=== PATIENT | male | born 1945 | race Caucasian/White ===

== ENCOUNTER 2021-10-20 00:39 | Emergency (ER) | payer MEDICARE, OTHER ==
[2021-10-20 00:55] VITALS: BP 116/76
[2021-10-20 01:00] VITALS: BP 106/70
[2021-10-20] MEDS ORDERED: NORVASC2.5 M1 PO (01:03)
[2021-10-20] MEDS ORDERED: SOTALOL HCL80 MG PO (01:04)
[2021-10-20 01:15] VITALS: BP 110/68
[2021-10-20 01:23] LABS: HEMATOCRIT 30.7 % (39.0-50.0); MEAN CELL VOLUME 82.1 fL CALC (80.0-100.0); MEAN CORPUSCULAR HGB 26.7 pG CALC (26.0-32.0); MEAN CORPUSCULAR HGB CONC 32.6 g/dL CAL (32.0-36.0); NEUT# 9.94 thou/uL (1.82-7.42); RED BLOOD COUNT 3.74 mill/uL (4.70-6.10); RED CELL DISTRI WIDTH 13.2 % (11.5-15.5)
[2021-10-20 01:50] LABS: ALBUMIN 3.1 g/dL (3.2-5.0); ALKALINE PHOSPHATASE 77 u/l (38-126); ANION GAP 12 (6-22 (CALC)); BILIRUBIN, TOTAL 1.2 mg/dL (0.0-1.4); BUN 11 mg/dL (8-23); BUN/CREATININE RATIO 19 (12-20 (CALC)); CARBON DIOXIDE 25 mmol/l (22-30); CHLORIDE 95 mmol/l (95-108); CPK 71 u/l (52-200); CREATININE 0.6 mg/dL (0.7-1.3); GFR FOR AFR.AMER. > 60 ML/MIN (>=60 (CALC)); GFR OTHER RACES > 60 ML/MIN (>=60 (CALC)); POTASSIUM 4.3 mmol/l (3.5-5.1); SGOT/AST 30 u/l (19-48); SODIUM 127 mmol/l (137-146); TOTAL PROTEIN 6.7 g/dL (6.3-8.2)
[2021-10-20 01:59] LABS: MYOGLOBIN 69 ng/mL (0 - 121)
[2021-10-20 04:11] LABS: URINE BILIRUBIN - DIPSTICK NEGATIVE (NEGATIVE); URINE BLOOD DIPSTICK NEGATIVE (NEGATIVE); URINE COLOR YELLOW; URINE GLUCOSE - DIPSTICK NEGATIVE (NEGATIVE); URINE KETONE TRACE mg/dL (NEGATIVE); URINE LEUK ESTERASE NEGATIVE (NEGATIVE); URINE PH 5.5 (4.5-8.0); URINE PROTEIN - DIPSTICK NEGATIVE (NEG-TRACE); URINE SPECIFIC GRAVITY 1.025; URINE UROBILINOGEN - DIPSTICK 0.2 E.U./dL (0.2)
[2021-10-20 04:13] LABS: URINE NITRITE - DIPSTICK NEGATIVE (Negative)
[2021-10-20 04:46] VITALS: BP 101/66
[2021-10-20 05:00] VITALS: BP 90/61
[2021-10-20 05:15] VITALS: BP 95/63
== END 2021-10-20 05:25 | disposition home or self-care (01) ==
LOC: ED 00:39
PROVIDERS: Family Medicine
DX: R50.9 Fever, unspecified (principal); E87.1 Hypo-osmolality and hyponatremia; D69.6 Thrombocytopenia, unspecified

== ENCOUNTER 2021-12-30 18:17 | Emergency (ER) | payer MEDICARE, OTHER ==
[~2021-12-30] VITALS: Ht 177.8 cm; Wt 68.2 kg
[~2021-12-30 18:17] MED LIST: COQ10; CUMIN; IS-ZC 50 50 MG1 TAB; MAGNESIUM; NORVASC2.5 M1 PO; POTASSIUM; SOTALOL HCL80 MG PO; VITAMI PO; VITAMIN D PO; [UNRECOGNIZED DRUG - OTHER]; [UNRECOGNIZED DRUG - OTHER]
[2021-12-30 19:11] LABS: HEMATOCRIT 31.6 % (39.0-50.0); HEMOGLOBIN 9.7 g/dl (14.0-18.0); IMMATURE GRANULOCYTES 5.1 % (0.0-5.0); MEAN CELL VOLUME 77.8 fL CALC (80.0-100.0); MEAN CORPUSCULAR HGB 23.9 pG CALC (26.0-32.0); MEAN CORPUSCULAR HGB CONC 30.7 g/dL CAL (32.0-36.0); NEUT# 11.11 thou/uL (1.82-7.42); RED BLOOD COUNT 4.06 mill/uL (4.70-6.10); RED CELL DISTRI WIDTH 20.4 % (11.5-15.5)
[2021-12-30 19:20] LABS: ALBUMIN 3.3 g/dL (3.2-5.0); ALKALINE PHOSPHATASE 79 u/l (38-126); BUN 19 mg/dL (8-23); BUN/CREATININE RATIO 27 (12-20 (CALC)); CARBON DIOXIDE 26 mmol/l (22-30); CHLORIDE 92 mmol/l (95-108); CREATININE 0.7 mg/dL (0.7-1.3); GFR FOR AFR.AMER. > 60 ML/MIN (>=60 (CALC)); GFR OTHER RACES > 60 ML/MIN (>=60 (CALC)); POTASSIUM 3.7 mmol/l (3.5-5.1); SGOT/AST 32 u/l (19-48); TOTAL PROTEIN 6.8 g/dL (6.3-8.2)
[2021-12-30 19:22] LABS: ANION GAP 10 (6-22 (CALC)); BILIRUBIN, TOTAL 1.2 mg/dL (0.0-1.4); SODIUM 124 mmol/l (137-146)
[2021-12-30 19:45] VITALS: BP 116/74
[2021-12-30 20:00] VITALS: BP 117/73
[2021-12-30 20:15] VITALS: BP 114/71
[2021-12-30 20:16] LABS: URINE BILIRUBIN - DIPSTICK NEGATIVE (NEGATIVE); URINE BLOOD DIPSTICK NEGATIVE (NEGATIVE); URINE COLOR YELLOW; URINE GLUCOSE - DIPSTICK NEGATIVE (NEGATIVE); URINE KETONE TRACE mg/dL (NEGATIVE); URINE LEUK ESTERASE NEGATIVE (NEGATIVE); URINE PH 5.5 (4.5-8.0); URINE PROTEIN - DIPSTICK TRACE mg/dL (NEG-TRACE); URINE SPECIFIC GRAVITY >=1.030; URINE UROBILINOGEN - DIPSTICK 0.2 E.U./dL (0.2)
[2021-12-30 20:17] LABS: URINE NITRITE - DIPSTICK NEGATIVE (Negative)
[2021-12-30 20:30] VITALS: BP 112/69
[2021-12-30] MEDS ORDERED: SOD CHLORIDE1 G2 OD (20:30)
[2021-12-30 20:36] VITALS: BP 112/69
== END 2021-12-30 20:49 | disposition home or self-care (01) ==
LOC: ED 18:17
PROVIDERS: Family Medicine
DX: U07.1 COVID-19 (principal); R50.9 Fever, unspecified; R05.9 Cough, unspecified; R34 Anuria and oliguria; E87.1 Hypo-osmolality and hyponatremia; D69.6 Thrombocytopenia, unspecified

== ENCOUNTER 2022-02-05 07:14 | Day surgery (SDC) | payer MEDICARE, OTHER ==
[~2022-02-05] VITALS: Ht 177.8 cm; Wt 63.5 kg
[~2022-02-05 07:14] MED LIST changes: +NAC500 MG PO; +SOD CHLORIDE1 G2 OD
[2022-02-05 10:34] VITALS: BP 121/81
== END 2022-02-05 10:15 | disposition home or self-care (01) ==
LOC: ENDO 07:14
PROVIDERS: ATTEND Surgery
PROC: 0DJD8ZZ Inspection of Lower Intestinal Tract, Via Natural or Artificial Opening Endoscopic (ICD-10-PCS; principal; 2022-02-05)
PROC: 0DB78ZX Excision of Stomach, Pylorus, Via Natural or Artificial Opening Endoscopic, Diagnostic (ICD-10-PCS; 2022-02-05)
DX: D64.9 Anemia, unspecified (principal); K29.70 Gastritis, unspecified, without bleeding; K64.8 Other hemorrhoids; D69.6 Thrombocytopenia, unspecified; I10 Essential (primary) hypertension; Z86.010 Personal history of colon polyps; Z87.19 Personal history of other diseases of the digestive system

== ENCOUNTER 2023-10-30 14:10 | Emergency (ER) | payer MEDICARE, OTHER ==
[~2023-10-30] VITALS: Ht 177.8 cm; Wt 66.7 kg
[2023-10-30 14:24] VITALS: BP 128/80
[2023-10-30 14:31] VITALS: BP 125/80
[2023-10-30 14:45] VITALS: BP 127/81
[2023-10-30 14:48] VITALS: BP 127/81
== END 2023-10-30 14:51 | disposition home or self-care (01) ==
LOC: ED 14:10
DX: L76.22 Postprocedural hemorrhage of skin and subcutaneous tissue following other procedure (principal); D69.6 Thrombocytopenia, unspecified; Y83.8 Other surgical procedures as the cause of abnormal reaction of the patient, or of later complication, without mention of misadventure at the time of the procedure

== ENCOUNTER 2023-10-30 22:46 | Emergency (ER) | payer MEDICARE, OTHER ==
[~2023-10-30] VITALS: Ht 175.3 cm; Wt 66.0 kg
[2023-10-30 23:22] VITALS: BP 133/81
== END 2023-10-30 23:22 | disposition home or self-care (01) ==
LOC: ED 22:46
DX: L76.22 Postprocedural hemorrhage of skin and subcutaneous tissue following other procedure (principal); D69.6 Thrombocytopenia, unspecified; Y83.8 Other surgical procedures as the cause of abnormal reaction of the patient, or of later complication, without mention of misadventure at the time of the procedure; Z91.199 Patient's noncompliance with other medical treatment and regimen due to unspecified reason

== ENCOUNTER 2023-10-31 03:45 | Emergency (ER) | payer MEDICARE, OTHER ==
[~2023-10-31] VITALS: Ht 177.8 cm; Wt 66.0 kg
[2023-10-31 03:56] VITALS: BP 156/97
[2023-10-31 04:00] VITALS: BP 139/97
[2023-10-31 04:30] VITALS: BP 135/84
[2023-10-31 05:40] LABS: BASO% 0.2 % (0-3); EOS% 3.2 % (0-8); IMMATURE GRANULOCYTES 0.4 % (0.0-5.0); LYMPH% 8.5 % (15-41); MEAN CORPUSCULAR HGB 27.9 pG CALC (26.0-32.0); MONO% 5.2 % (2-13); NEUT# 8.59 thou/uL (1.82-7.42); NEUT% 82.5 % (42-76); RED BLOOD COUNT 4.44 mill/uL (4.70-6.10); RED CELL DISTRI WIDTH 14.4 % (11.5-15.5)
[2023-10-31 05:42] LABS: HEMATOCRIT 38.7 % (39.0-50.0); HEMOGLOBIN 12.4 g/dl (14.0-18.0); MEAN CELL VOLUME 87.2 fL CALC (80.0-100.0)
[2023-10-31 05:53] LABS: ACT PARTIAL THROMBO TIME 26.5 SECONDS (20.0-32.5); INTERNATIONAL NORMALIZED RATIO 1.1 RATIO (0.7-1.3)
[2023-10-31 05:57] LABS: PROTHROMBIN TIME 10.8 SECONDS (9.0-12.5)
[2023-10-31 06:22] VITALS: BP 135/84
== END 2023-10-31 06:22 | disposition home or self-care (01) ==
LOC: ED 03:45
PROVIDERS: Family Medicine
DX: L76.22 Postprocedural hemorrhage of skin and subcutaneous tissue following other procedure (principal); Y83.8 Other surgical procedures as the cause of abnormal reaction of the patient, or of later complication, without mention of misadventure at the time of the procedure

== ENCOUNTER 2024-02-08 22:35 | Emergency (ER) | payer MEDICARE, OTHER ==
[~2024-02-08] VITALS: Ht 177.8 cm; Wt 70.0 kg
[2024-02-08 22:46] VITALS: BP 113/76
[2024-02-08] MEDS ORDERED: ASPIRIN 81 MG/TAB PO ONE (22:55)
[2024-02-08] MEDS ORDERED: ZOLOFT25 MG PO (23:00)
[2024-02-08 23:01] VITALS: BP 111/69
[2024-02-08 23:08] LABS: BASO% 0.3 % (0-3); EOS% 2.2 % (0-8); HEMATOCRIT 37.5 % (39.0-50.0); HEMOGLOBIN 11.4 g/dl (14.0-18.0); IMMATURE GRANULOCYTES 0.5 % (0.0-5.0); LYMPH% 11.2 % (15-41); MEAN CELL VOLUME 84.5 fL CALC (80.0-100.0); MEAN CORPUSCULAR HGB 25.7 pG CALC (26.0-32.0); MEAN CORPUSCULAR HGB CONC 30.4 g/dL CAL (32.0-36.0); MONO% 8.9 % (2-13); NEUT# 5.91 thou/uL (1.82-7.42); NEUT% 76.9 % (42-76); RED BLOOD COUNT 4.44 mill/uL (4.70-6.10); RED CELL DISTRI WIDTH 14.3 % (11.5-15.5)
[2024-02-08 23:17] LABS: ALBUMIN 3.8 g/dL (3.2-5.0); ALKALINE PHOSPHATASE 59 u/l (38-126); BILIRUBIN, TOTAL 0.8 mg/dL (0.2-1.3); BUN 18 mg/dL (8-23); BUN/CREATININE RATIO 20 (12-20 (CALC)); CARBON DIOXIDE 24 mmol/l (22-30); CHLORIDE 103 mmol/l (95-108); CPK 123 u/l (55-170); CREATININE 0.9 mg/dL (0.7-1.3); ESTIMATED GFR 87 ML/MIN (>=90 (CALC)); POTASSIUM 4.4 mmol/l (3.5-5.1); SGOT/AST 34 u/l (19-48)
[2024-02-08 23:23] LABS: ANION GAP 13 (6-22 (CALC)); SODIUM 136 mmol/l (137-146)
[2024-02-08] MEDS ORDERED: Iopamidol 370 (Isovue) 76% 100 ML SDV IV ONE (23:45)
[2024-02-09] VITALS: BP 106/69
[2024-02-09 01:00] VITALS: BP 118/79
[2024-02-09 01:03] LABS: URINE BILIRUBIN - DIPSTICK Negative (NEGATIVE); URINE BLOOD DIPSTICK Negative (NEGATIVE); URINE GLUCOSE - DIPSTICK Negative (NEGATIVE); URINE KETONE Negative (NEGATIVE); URINE LEUK ESTERASE Negative (NEGATIVE); URINE NITRITE - DIPSTICK Negative (Negative); URINE PROTEIN - DIPSTICK Negative (NEG-TRACE); URINE SPECIFIC GRAVITY 1.015; URINE UROBILINOGEN - DIPSTICK 0.2 E.U./dL (0.2)
[2024-02-09 01:04] LABS: URINE COLOR Yellow
[2024-02-09 02:00] VITALS: BP 122/85
[2024-02-09 02:18] VITALS: BP 122/85
== END 2024-02-09 02:19 | disposition home or self-care (01) ==
LOC: ED 22:35
PROVIDERS: Family Medicine
DX: R00.8 Other abnormalities of heart beat (principal)
CPT/HCPCS: Q9967